=== PATIENT | male | born 1960 | race African-American/Black ===

== ENCOUNTER 2017-02-27 11:58 | Outpatient (CLI) | payer OTHER ==
--- NOTE | 2017-02-27 14:08 | CT ---
CT PELVIS NONCONTRAST: Date: 02/27/17 HISTORY: Nontraumatic right hip swelling for over 1 month. FINDINGS: Abutting the lateral surfaces of the musculature of the right gluteus complex, right hip, and right l ateral upper thigh, there is a large, thin-walled fluid collection that measures approximately 14.5 c m anteroposterior, 30.5 cm craniocaudal x 7.5 cm transverse. This collection has a density of approxi mately 35 HU. There is fat stranding surrounding this large collection. There is no underlying fractu re, periosteal elevation, callus, permeative lesion, osteolytic lesion, or osteoblastic lesion involv ing the proximal femur, or any of the bones of the pelvis. There is no free fluid or obvious mass wit hin the pelvic cavity. There is diffuse mild mural thickening of the urinary bladder, nonspecific. No nspecific multiple enlarged bilateral inguinal lymph nodes, right greater than left. There are multiple small foci of fatty signal in the posterior aspect of this collection (axial image s 35, 36, and 32 of 83, series 2). This large collection is a dramatic change since the previous pelv ic CT of 01/15/17, which showed much small traumatic contusion in this location. This is now a large hemolymphatic fluid collection due to degloving mechanism of injury. IMPRESSION: Very large Fleming-Bhupendra fluid collection in the tissues superficial to the musculature of the right hip and right proximal thigh. POS: [facility]
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
== END 2017-02-27 11:59 | disposition home or self-care (01) ==
LOC: CT 11:58
PROVIDERS: ATTEND Thoracic Surgery (Cardiothoracic Vascular Surgery)
DX: S45.09 Other specified injury of axillary artery (principal); M89.9 Disorder of bone, unspecified; M25.451 Effusion, right hip
CPT/HCPCS: 72192

== ENCOUNTER 2017-03-02 05:41 | Inpatient (IN) | payer OTHER ==
[2017-03-02] MEDS ORDERED: Fentanyl 100 MCG/2 ML VIAL ONE ×3 (06:34→10:47)
[2017-03-02] MEDS ORDERED: CEFAZOLIN/Water 2 GM/20 ML SYRINGE ONE (06:49)
[2017-03-02] MEDS ORDERED: Neomycin-Polymyxin 1 ML AMP ONE (07:22)
[2017-03-02] MEDS ORDERED: Midazolam HCl 2 mg/2 ml Vial ONE (07:32)
[2017-03-02 09:40] LABS: BF Reference Range Comment Note:
[2017-03-02] MEDS ORDERED: HYDROcodone/Acetaminophen 10/325 mg Tablet PO PRN (09:43)
[2017-03-02] MEDS ORDERED: traMADol HCl 50 MG TAB PO PRN (09:43)
[2017-03-02 11:42] VITALS: BMI 29.2
[2017-03-02 11:54] LABS: BF Color Red
[2017-03-02 11:55] LABS: RBC Count-Automated 171000 /cumm
--- NOTE | 2017-03-02 12:27 | EKG ---
Test Reason : PREOP Blood Pressure : / mmHG Vent. Rate : 046 BPM Atrial Rate : 046 BPM P-R Int : 156 ms QRS Dur : 094 ms QT Int : 534 ms P-R-T Axes : 040 -12 001 degrees QTc Int : 467 ms Marked sinus bradycardia Moderate voltage criteria for LVH, may be normal variant T wave abnormality, consider lateral ischemia Prolonged QT Abnormal ECG When compared with ECG of 27-FEB-1996 22:48, ST no longer elevated in Anterior leads Confirmed by XIN MCRAE ([id number]) on 03/02/2017 12:27:21 PM Referred By: DENNIS Confirmed By:XIN MCRAE
[2017-03-02 12:43] LABS: Number Cells Counted-Fluids 100
[2017-03-02] MEDS: HYDROcodone/Acetaminophen 10/325 mg Tablet PO PRN ×3 (13:00→23:19)
[2017-03-02] MEDS: CEFAZOLIN/Water 2 GM/20 ML SYRINGE SLOW IVP SCH ×2 (14:49→23:19)
[2017-03-02] MEDS ORDERED: Propofol 200 MG/20 ML VIAL ONE (15:53)
[2017-03-02] MEDS ORDERED: Dexamethasone 20 MG/5 ML VIAL ONE (15:53)
[2017-03-02] MEDS ORDERED: Ketorolac Tromethamine 30 MG/ML VIAL ONE (15:53)
[2017-03-02] MEDS ORDERED: ePHEDrine/0.9% NaCl/PF SYRINGE 50 mg/10 ml ONE (15:53)
[2017-03-02] MEDS ORDERED: Ondansetron HCl/PF 4 MG/2 ML Vial ONE (15:53)
[2017-03-02] MEDS ORDERED: Glycopyrrolate 0.2 MG/ML 5 ML SYRINGE ONE (15:53)
[2017-03-02] MEDS ORDERED: Lidocaine 1% PF 5 ML VIAL ONE (15:53)
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
[2017-03-03 05:32] LABS: #Lymphocytes 2.1 thou/uL (1.20-3.40); #Monocytes 0.9 thou/uL (0.11-0.59); #Neutrophils 4.6 thou/uL (1.40-6.50); %Basophils 0.1 % (0.0-1.0); %Eosinophils 0.3 % (0.0-10.0); %Lymphocytes 27.4 % (21.0-51.0); %Monocytes 11.8 % (0.0-10.0); Mean Platelet Volume 7.3 fL (7.4-10.4); Red Blood Cell (RBC) Count 4.27 mill/uL (4.70-6.10); White Blood Cell (WBC) Count 7.7 thou/uL (4.8-10.8)
[2017-03-03] MEDS: HYDROcodone/Acetaminophen 10/325 mg Tablet PO PRN ×4 (06:31→20:48)
[2017-03-04] MEDS: HYDROcodone/Acetaminophen 10/325 mg Tablet PO PRN ×2 (02:02→10:18)
[2017-03-04 05:06] LABS: #Eosinphils 0.1 thou/uL (0.0-0.7); #Lymphocytes 1.8 thou/uL (1.20-3.40); #Monocytes 0.8 thou/uL (0.11-0.59); #Neutrophils 4.5 thou/uL (1.40-6.50); %Basophils 0.1 % (0.0-1.0); %Eosinophils 1.3 % (0.0-10.0); %Lymphocytes 24.5 % (21.0-51.0); %Monocytes 10.7 % (0.0-10.0); Mean Platelet Volume 7.4 fL (7.4-10.4); Red Blood Cell (RBC) Count 4.49 mill/uL (4.70-6.10); White Blood Cell (WBC) Count 7.2 thou/uL (4.8-10.8)
[2017-03-04 13:19] VITALS: BP 114/72; TEMP 98.2
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
--- NOTE | 2017-03-06 18:14 | PQF ---
PEDRO BRUCE ANTHONY, MD [id number] [facility]- [id number] CLINICAL DOCUMENTATION CLARIFICATION FORM: POST DISCHARGE Addendum to original discharge summary date: ____ Late entry note date: __ DATE: 03/02/2017 ATTN: Pa Tomlin MD Please exercise your independent, professional judgment in responding to the clarification form. Clinical indicators are provided on the bottom of this form for your review Discharge Summary: ...He underwent irigation and debridemetn with drainage of hematoma on day of admission. Please check appropriate box(s): [ ] Excisional Debridement: [ ] Excised [ ] Cut away [ ] Other: Depth / layer: (deepest layer of debridement): [ ] Skin[ ] SubQ Tissue [ ] Fascia [ ] Muscle [ ] Tendon [ ] Bone Appearance of wound: (e.g., down to fresh bleeding tissue, etc.)___ Margins: (please specify): / x x Instruments used: [ ] Scissors [ ] Scalpel [ ] Curette [ ] Soft tissue clipper [ ] Other: [ ] Non-excisional Debridement: (Removal by ?ushing, brushing, chemical, or washing) [ ] Incision and Drainage only (No Debridement): Depth:[ ] Skin [ ] Sub Q[ ] Into soft tissue [ ] Escharectomy [ ] Other procedure diagnosis [ ] Unable to determine For continuity of documentation, please document condition throughout progress notes and discharge summary. Thank You. CLINICAL INDICATORS - SIGNS / SYMPTOMS / LABS I&D Cutting away of tissue (e.g., scissors, scalpel, curette, etc.) Debridement Removal of or excision of necrotic devitalized tissue or slough RISK FACTORS Bedridden/Immobile patient Infected/gangrenous ulcer or wound TREATMENTS: Surgical intervention PT for dressings/MIST therapy/ Hyperbaric therapy (This form is maintained as a part of the permanent medical record) 2015 [employer]. All Rights Reserved [email or web address] [email or web address] [phone] [email or web address]
== END 2017-03-04 13:31 | disposition home or self-care (01) | DRG 605 ==
LOC: SDC 05:41 → SURG A 09:43
PROVIDERS: ADMIT Orthopaedic Surgery; ATTEND Orthopaedic Surgery
PROC: 0J9L00Z Drainage of Right Upper Leg Subcutaneous Tissue and Fascia with Drainage Device, Open Approach (ICD-10-PCS; principal; 2017-03-02)
DX: S70.01XA Contusion of right hip, initial encounter (principal); I10 Essential (primary) hypertension; S45.001 Unspecified injury of axillary artery, right side; S42.321D Displaced transverse fracture of shaft of humerus, right arm, subsequent encounter for fracture with routine healing; S42.141D Displaced fracture of glenoid cavity of scapula, right shoulder, subsequent encounter for fracture with routine healing; S42.151D Displaced fracture of neck of scapula, right shoulder, subsequent encounter for fracture with routine healing; V03.99XA Pedestrian with other conveyance injured in collision with car, pick-up truck or van, unspecified whether traffic or nontraffic accident, initial encounter
CPT/HCPCS: 36415; 85025; 85060; 87070; 87205; 89051; 93005; 93010; G8978-GP-CI; G8979-GP-CI; G8980-GP-CI; J1100; J1885; J2001; J2250; J2405; J2704; J3010